=== PATIENT | female | born 1995 | race Caucasian/White ===

== ENCOUNTER 2016-11-28 10:45 | Emergency (ER) | payer MEDICAID ==
[2016-11-28] MEDS ORDERED: IBUPROFEN 400 MG TABLET PO ONE (11:14)
--- NOTE | 2016-11-28 11:18 | Emergency Department Record ---
History of Present Illness - General Chief complaint: Female Urogenital Problem Stated complaint: VAGINAL PAIN/NAUSEATED Time Seen by Provider: 11/28/16 11:08 Source: Patient Mode of Arrival: Ambulatory Limitations: No limitations - History of Present Illness Initial comments: 21 yo female presents to ED with a CC of lower abdominal pain and vaginal bleeding following intercourse earlier this morning. Patient denies health problems at her baseline, and denies the use of anticoagulation medications. Patient reports that her symptoms are different from her usual menses. MD Complaint: Vaginal bleeding Onset/Timin -: Hour(s) Location: Labia, Perineum, Other Radiation: Other Quality: Cramping, Sharp, Other Consistency: Constant, Getting worse Improves with: None Worsens with: Universal Patient : No Associated Symptoms: Abdominal pain, Nausea/vomiting, Vaginal bleeding - Related Data : 1 Home Medications Medication Instructions Recorded Confirmed Last Taken Etonogestrel [Nexplanon] 68 mg SQ ASDIR 11/28/16 11/28/16 11/29/15 Allergies Allergy/AdvReac Type Severity Reaction Status Date / Time Penicillins Allergy HIVES Verified 06/27/15 08:35 Travel Screening - Travel/Exposure Within Last 30 Days Have you traveled within the last 30 days?: No - Travel/Exposure Within Last Year Have you traveled outside the [place] in the last year?: No - Additonal Travel Details Have you been exposed to anyone with a communicable illness?: No - Travel Symptoms Symptom Screening: None Review of Systems Constitutional: Denies: Chills, Fever, Malaise, Night sweats Eyes: Denies: Eye discharge, Eye pain ENT: Denies: Congestion, Ear pain, Epistaxis Respiratory: Denies: Cough, Dyspnea Cardiovascular: Denies: Chest pain, Dyspnea on exertion Endocrine: Denies: Fatigue, Heat or cold intolerance Gastrointestinal: Reports: Abdominal pain. Denies: Nausea, Vomiting Genitourinary: Reports: Other (vaginal bleeding). Denies: Dysuria, Frequency, Hematuria, Incontinence Musculoskeletal: Denies: Arthralgia, Back pain, Gout, Joint swelling Skin: Denies: Bruising, Change in color Neurological: Denies: Abnormal gait, Confusion, Headache, Seizure Psychiatric: Denies: Anxiety Hematological/Lymphatic: Denies: Anemia, Blood Clots Past Medical History - SOCIAL HISTORY Smoking Status: Current every day smoker Alcohol Use: Occassional Drug Use: None - [employer] History : 1 - RESPIRATORY Hx Respiratory Disorders: No - CARDIOVASCULAR Hx Cardio Disorders: No - NEURO Hx Neuro Disorders: No - GI Hx GI Disorders: No - Hx Genitourinary Disorders: Yes Hx Kidney Stones: Yes - ENDOCRINE Hx Endocrine Disorders: No - MUSCULOSKELETAL Hx Musculoskeletal Disorders: No - PSYCH Hx Psych Problems: No - HEMATOLOGY/ONCOLOGY Hx Hematology/Oncology Disorders: No Family Medical History Any Significant Family History?: No Physical Exam - General General Appearance: Alert, Oriented x3, Cooperative, Moderate distress Limitations: No limitations - Head Head exam: Atraumatic, Normocephalic, Normal inspection Head exam detail: negative: Abrasion, Contusion, Alfonso's sign, General tenderness, Hematoma, Laceration - Eye Eye exam: Normal appearance. negative: Conjunctival injection, Periorbital swelling, Periorbital tenderness, Scleral icterus - ENT Ear exam: negative: Auricular hematoma, Auricular trauma Nasal Exam: negative: Active bleeding, Discharge, Dried blood, Foreign body Mouth exam: negative: Drooling, Laceration, Muffled voice, Tongue elevation - Neck Neck exam: Normal inspection. negative: Meningismus, Tenderness - Respiratory Respiratory exam: Normal lung sounds bilaterally. negative: Rales, Respiratory distress, Rhonchi, Stridor - Cardiovascular Cardiovascular Exam: Regular rate, Normal rhythm, Normal heart sounds - GI/Abdominal GI/Abdominal exam: Soft, Tenderness (TTP RUQ, RLQ, and suprapubic region on examination). negative: Rebound, Rigid - Rectal Rectal exam: Deferred - exam: Vaginal bleeding, Other (small amount of dark bleeding present from the cervix on examination, cervical os appears mildly dilated. No vaginal tears identified on examination.) - Extremities Extremities exam: Normal inspection. negative: Pedal edema, Tenderness - Back Back exam: Denies: CVA tenderness (R), CVA tenderness (L) - Neurological Neurological exam: Alert, Normal gait, Oriented X3 - Psychiatric Psychiatric exam: Normal affect, Normal mood - Skin Skin exam: Normal color. negative: Abrasion Type of lesion: negative: abrasion Course Vital Signs 11/28/16 10:48 Temperature 98.1 F Pulse Rate 85 Respiratory 16 Rate Blood Pressure 117/86 Pulse Ox 100 - Reevaluation(s) Reevaluation #1: 11/28/16 12:31 Labs reviewed, Hgb 12.7 (stable), labs are otherwise grossly unremarkable for an acute process. Awaiting CT imaging result for further evaluation of her abdominal pain symptoms. Reevaluation #2: 11/28/16 13:13 CT Abdomen and Pelvis: Nothing acute, intra-renal calculi present, left ovarian follicle, small amount of free-fluid felt to be physiologic. Patient was updated on all results, resting comfortably at this time. Patient appears stable for discharge at this time with symptomatic treatment for her dysfunctional uterine bleeding symptoms. Medical Decision Making - Lab Data Result diagrams: 11/28/16 11:44 11/28/16 11:44 Disposition Disposition: Discharge Clinical Impression: Dysfunctional uterine bleeding Disposition: Home, Self-Care Condition: (2) Stable Instructions: Dysfunctional Uterine Bleeding (ED) Additional Instructions: Return to ED if your symptoms worsen or if you have any concerns. Follow-up with your family doctor in 3-5 days as directed. Ibuprofen as directed for your pain symptoms. Forms: Patient Portal Access Time of Disposition: 13:15
[2016-11-28 12:00] LABS: BASO % 0.3 % (0-6); EOS % 2.3 % (0-6); GRAN % 59.8 % (47-80); HEMOGLOBIN 12.7 gm/dl (11.6-16.0); MEAN CELL VOLUME 88.6 fl (81-97); MEAN CORPUSCULAR HEMOGLOBIN 29.6 pg (27-33); MEAN CORPUSCULAR HGB CONC 33.4 g/dl (32-36); MEAN PLATELET VOLUME 11.3 fl (7.4-10.4); MONO % 10.6 % (0-9); PLATELET COUNT 305 K/uL (130-400); RED BLOOD COUNT 4.29 M/uL (3.80-5.40); RED CELL DISTRIBUTION WIDTH 12.9 % (11.5-14.5)
[2016-11-28 12:09] LABS: URINE APPEARANCE CLEAR; URINE BILIRUBIN NEGATIVE (NEGATIVE); URINE BLOOD LARGE (NEGATIVE); URINE COLOR YELLOW; URINE GLUCOSE (UA) NEGATIVE (NEGATIVE); URINE KETONE NEGATIVE (NEGATIVE); URINE LEUKOCYTE ESTERASE NEGATIVE (NEGATIVE); URINE NITRITE NEGATIVE (NEGATIVE); URINE PROTEIN NEGATIVE (NEGATIVE); URINE UROBILINOGEN 0.2 E.U./dL (0.20 - 1.00)
[2016-11-28 12:10] LABS: URINE WBC 0 - 2 (0-2/hpf)
[2016-11-28 12:11] LABS: HCG,QUALITATIVE URINE NEGATIVE (NEGATIVE); URINE BACTERIA NONE SEEN
[2016-11-28 12:13] LABS: ALB/GLOB RATIO 1.3 (1.1-1.8); ALKALINE PHOSPHATASE 94 U/L (38-126); ALT/SGPT 26 U/L (9-52); ANION GAP 9.1 (7-16); AST/SGOT 16 U/L (14-36); BILIRUBIN,TOTAL 0.18 mg/dL (0.2-1.3); BLOOD UREA NITROGEN 15 mg/dL (7-17); CARBON DIOXIDE 23.9 mmol/L (22-30); CREATININE 0.5 mg/dL (0.52-1.04); EST GLOMERULAR FILTRATION RATE > 60 ml/min; GLUCOSE,RANDOM 101 mg/dL (70-110)
--- NOTE | 2016-12-01 15:13 | CT SCAN REPORT ---
DATE: 11/28/2016. EXAM: CT OF THE ABDOMEN AND PELVIS. HISTORY: Abdominal pain. TECHNIQUE: CT of the abdomen and pelvis was performed following the intravenous administration of 100 mL of Omnipaque 300 contrast. Lack of oral contrast limits evaluation of bowel. COMPARISON: Prior CT from 06/27/2015. FINDINGS: Limited evaluation of the lung bases is unremarkable. Osseus structures are grossly intact. The liver, spleen, adrenal glands, and pancreas are unremarkable. Non-obstructing 2.0 mm calculus in the inferior pole of the left kidney. No other definitive urinary tract calculi or hydronephrosis. Bilateral ovarian follicles with what is likely a dominant follicle in the left adnexal region measuring 2.1 x 2.4 cm. There is a trace of free fluid in the pelvis. No gross evidence for bowel obstruction. No free air. Normal appendix. IMPRESSION: 1. A TRACE OF FREE FLUID IN THE PELVIS WHAT IS LIKELY PHYSIOLOGIC. PROBABLE DOMINANT FOLLICLE OF THE LEFT OVARY. 2. A 2.0 MM NON-OBSTRUCTING LEFT RENAL CALCULUS. JOB NUMBER: [id number] MTDD
== END 2016-11-28 13:25 | disposition home or self-care (01) ==
LOC: ER 10:45
DX: N93.8 Other specified abnormal uterine and vaginal bleeding (principal); R11.2 Nausea with vomiting, unspecified; N20.0 Calculus of kidney; R10.30 Lower abdominal pain, unspecified
CPT/HCPCS: 74177; 80053; 81001; 81025; 85025; 99284

== ENCOUNTER 2017-09-14 17:02 | Emergency (ER) | payer MEDICAID ==
[2017-09-14] MEDS ORDERED: DEXAMETHASONE SOD PHOSPHATE 10MG/ML VIAL PO ONE (18:28)
--- NOTE | 2017-09-14 18:29 | Emergency Department Record ---
History of Present Illness - General Chief complaint: Dental Stated complaint: LT JAW PAIN Time Seen by Provider: 09/14/17 18:23 Source: Patient Mode of Arrival: Ambulatory Limitations: No limitations - History of Present Illness Initial comments: 22 yo female presents with left jaw pain for several days. She has some hot and cold sensitivities. No fever or swelling. It hurts to open and close the jaw. No ear pain. 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 No clicking or popping of the jaw. MD complaint: Tooth pain, Other (Left jaw) Onset/Timin -: Hour(s) Location: Other Severity: Moderate Severity scale (1-10): 8 Quality: Sharp Consistency: Constant Improves with: None Worsens with: None Context- Dental: History of dental caries - Related Data Previous Rx's Medication Instructions Recorded Clindamycin HCl 300 mg PO QID #28 capsule 09/14/17 Naproxen [Naprosyn] 500 mg PO BID #20 tablet 09/14/17 Allergies Allergy/AdvReac Type Severity Reaction Status Date / Time Penicillins Allergy HIVES Unverified 08/11/17 18:01 Travel Screening - Travel/Exposure Within Last 30 Days Have you traveled within the last 30 days?: No Review of Systems Constitutional: Denies: Chills, Fever, Malaise, Weakness Eyes: Denies: Eye discharge, Eye pain, Photophobia, Vision change ENT: Reports: Dental pain, Other (No ear ringing). Denies: Congestion, Ear pain , Epistaxis, Hearing loss, Throat pain Respiratory: Denies: Cough, Dyspnea Cardiovascular: Denies: Chest pain Endocrine: Denies: Fatigue Gastrointestinal: Denies: Diarrhea, Nausea, Vomiting Genitourinary: Denies: Dysuria Musculoskeletal: Denies: Arthralgia, Back pain, Joint swelling, Myalgia Skin: Denies: Bruising, Change in color, Rash Neurological: Denies: Confusion, Headache, Numbness, Paresthesias Psychiatric: Denies: Anxiety Hematological/Lymphatic: Denies: Blood Clots, Easy bleeding, Easy bruising, Swollen glands Past Medical History - SOCIAL HISTORY Smoking Status: Former smoker Alcohol Use: None Drug Use: None - RESPIRATORY Hx Respiratory Disorders: No - CARDIOVASCULAR Hx Cardio Disorders: No - NEURO Hx Neuro Disorders: No - GI Hx GI Disorders: No - Hx Genitourinary Disorders: Yes Hx Kidney Stones: Yes - ENDOCRINE Hx Endocrine Disorders: No - MUSCULOSKELETAL Hx Musculoskeletal Disorders: No - PSYCH Hx Psych Problems: No - HEMATOLOGY/ONCOLOGY Hx Hematology/Oncology Disorders: No Family Medical History Any Significant Family History?: No Physical Exam - General General Appearance: Alert, Oriented x3, Cooperative, No acute distress - Head Head exam: Atraumatic, Normal inspection Image of Face/Head: 1 - tender, no redness or swelling, no click or pop, lower posterior teeth tender but normal on inspection - Eye Eye exam: Normal appearance, PERRL, EOMI. negative: Periorbital swelling, Periorbital tenderness - ENT ENT exam: Normal exam, Mucous membranes moist, Normal orophraynx, TM's normal bilaterally Ear exam: Normal external inspection Nasal Exam: Normal inspection Mouth exam: Normal external inspection Teeth exam: Normal inspection, Dental tenderness #. negative: Dental caries, Fractured tooth #, Gingival enlargement Throat exam: Normal inspection. negative: Tonsillar erythema, Tonsillomegaly, Tonsillar exudate, R peritonsillar mass, L peritonsillar mass - Neck Neck exam: Normal inspection, Full ROM. negative: Lymphadenopathy, Tenderness - Respiratory Respiratory exam: Normal lung sounds bilaterally. negative: Respiratory distress - Cardiovascular Cardiovascular Exam: Regular rate, Normal rhythm, Normal heart sounds - Rectal Rectal exam: Deferred - exam: Deferred - Extremities Extremities exam: Normal inspection - Back Back exam: Reports: Normal inspection - Neurological Neurological exam: Alert, CN II-XII intact, Oriented X3. negative: Altered - Psychiatric Psychiatric exam: Normal affect, Normal mood - Skin Skin exam: Dry, Intact, Normal color, Warm Course Vital Signs 09/14/17 17:40 Temperature 98.4 F Pulse Rate 102 H Respiratory 16 Rate Blood Pressure 128/77 Pulse Ox 95 Disposition Disposition: Discharge Clinical Impression: Pain, dental Disposition: Home, Self-Care Condition: (1) Good Instructions: Toothache (ED) Additional Instructions: Return if worse, swelling or fever Call your doctor and dentist for a recheck if not improved Prescriptions: Clindamycin HCl 300 mg PO QID #28 capsule Naproxen [Naprosyn] 500 mg PO BID #20 tablet Time of Disposition: 18:28 Quality - Quality Measures Quality Measures: N/A - Blood Pressure Screening Does Patient Have Any of the Following: No Blood Pressure Classification: Pre-Hypertensive BP Reading Systolic Measurement: 128 Diastolic Measurement: 77 Screening for High Blood Pressure: < Pre-Hypertensive BP, F/U Documented > [ [id number]] Pre-Hypertensive Follow-up Interventions: Referral to alternative/primary care provider.
== END 2017-09-14 18:52 | disposition home or self-care (01) ==
LOC: ER 17:02
DX: K08.89 Other specified disorders of teeth and supporting structures (principal); R68.84 Jaw pain
CPT/HCPCS: 99282